=== PATIENT | female | born 2000 | race Caucasian/White ===

== ENCOUNTER 2023-07-16 01:32 | Emergency (ER) | payer SELFPAY ==
--- OUTSIDE RECORDS SUMMARY | 2023-07-16 01:34 | XMS REPORT | Continuity of Care Document ---
:2000 Author Organization [facility] t Address [address] [facility]. [address] [place] [address] Care Team Providers Name Role Phone Sylvia Luke NP Primary Care Physician Doctor Unassigned, [place] Attending Clinician Unavailable 2, [facility] Attending Clinician Unavailable Sylvia Luke NP Attending Clinician SYLVIA LUKE Attending Clinician Unavailable Payers Payer Name Policy Type Policy Number Effective Date Expiration Date S ource Problems Condition Condition Condition Status Onset Resolution Last Treating Co mments Source Name Details Category Date Date Treatment Clinician Date No known No known Disease Unive rs active active ity of problems problems [facility] Allergies, Adverse Reactions, Alerts Allergy Allergy Status Severity Reaction(s) Onset Inactive Treating Comm ents Source Name Type Date Date Clinician NO KNOWN Drug Active Univers ALLERGIE Class ity of S [facility] Social History Social Habit Start Date Stop Date Quantity Comments Source [facility] and 2022-08-08 2022-08-08 Smokeless Universit y of exposure 00:00:00 00:00:00 tobacco non-user [facility] History of Social 2022-08-08 2022-08-08 Univers ity of function 00:00:00 00:00:00 [facility] Sex Assigned At [birth year] Universit y of 00:00:00 00:00:00 [facility] Smoking Status Start Date Stop Date Source Tobacco smoking consumption [facility] Never smoked tobacco [facility] Medications Ordered Filled Start Stop Current Ordering Indication Dosage Frequency Signature Comments Components Source Medication Medication Date Date Medication? Clinician (SIG) Name Name No known 2021-08 No No known Unive rs medications 2-09 medication it y of 13:27: s [address] No known 2021-08 No No known Unive rs medications 2-09 medication it y of 13:27: s [address] No known 2021-08 No No known Unive rs medications 2-09 medication it y of 13:27: s [address] Vital Signs Vital Name Observation Time Observation Value Comments Source Systolic blood 2022-08-08 19:02:00 106 mm[Hg] Univer sity of [facility] Diastolic blood 2022-08-08 19:02:00 70 mm[Hg] Unive rsity [facility] Heart rate 2022-08-08 19:02:00 85 /min [facility] Body temperature 2022-08-08 19:02:00 37.22 Amanda [facility] Respiratory rate 2022-08-08 19:02:00 18 /min [facility] Body height 2022-08-08 19:02:00 154.9 cm [facility] Body weight 2022-08-08 19:02:00 51.891 kg [facility] BMI 2022-08-08 19:02:00 21.62 kg/m2 [facility] Oxygen saturation in 2022-08-08 19:02:00 99 /min [facility] blood by [facility] Pulse oximetry Drifting Procedures Procedure Date / Time Performed Performing Clinician [facility] e ASSIGNMENT OF BENEFITS 2022-08-08 18:50:09 Doctor Unassigned, No [facility] Encounters Start End Encounter Admission Attending Care Care Encounter Source Date/Time Date/Time Type Type Clinicians Facility Department ID 2023-03-28 2023-03-28 Patient Doctor NATHANAEL [id number] Univers 00:00:00 00:00:00 Secure Msg Unassigned, DEIDRE [id number] [facility] [id number] [place] as [phone] [place] [address] [address] 2022-08-08 2022-08-08 [employer] 2, Ad[facility] Lab [facility] [id number] Univers 13:45:00 14:00:00 Visit Prabha, Sylvia GONCALVES [id number] [facility] [id number] [phone] [place] dical [address] [address] [facility] 2022-08-08 2022-08-08 Office Prabha [facility] [id number] [facility] 13:00:00 13:46:54 Visit Sylvia GONCALVES [id number] ity of [id number] [phone] Va dical [facility] 0[address] [facility] 2022-08-08 2022-08-08 Outpatient R SYLVIA LUKE [facility] [id number] [facility] 13:00:00 13:46:54 SYLVIA LUKE ity of [facility] 2022-08-08 2022-08-08 Orders Doctor NATHANAEL [id number] Univers 00:00:00 00:00:00 Only Unassigned, DEIDRE [id number] ity of [place] [facility] [id number] [place]wn as [phone] [place] [address] [address] Results This patient has no known results.
[2023-07-16] MEDS ORDERED: DIAZEPAM 5 MG TABLET ONE (01:59)
[2023-07-16 03:00] LABS: Hematocrit 42.1 % (36.0-45.0); Lymphocytes % 25.3 % (15.3-44.8); MCV 84.8 fL (80-100); MPV 9.6 fL (7.6-11.3); Platelets 311 thou/uL (152-406); RBC Red Blood Cell Count 4.97 M/uL (3.86-4.86)
[2023-07-16 03:18] LABS: ALT/SGPT 20 U/L (13-56); AST/SGOT 14 U/L (15-37); Albumin 4.2 g/dL (3.4-5.0); Alkaline Phosphatase 65 U/L (45-117); BUN Blood Urea Nitrogen 11 mg/dL (7-18); Bicarbonate 27 mEq/L (21-32); Bilirubin Total 0.2 mg/dL (0.2-1.0); Creatine Phosphokinase 63 U/L (26-192); Glomerular Filtration Rate 127 ml/min (=/>90); Glucose Level 109 mg/dL (74-106); Potassium 4.1 mEq/L (3.5-5.1); Protein, Total 8.2 g/dL (6.4-8.2); Sodium Level 137 mEq/L (136-145)
[2023-07-16 03:24] LABS: Bilirubin Direct < 0.1 mg/dL (0-0.2); Bilirubin Indirect, Calculated ND mg/dL (0.2-0.8)
--- NOTE | 2023-07-16 03:44 | EDPHYS ---
Physician Documentation [facility] Name: Sofía Perry Age: 23 yrs Sex: Female : 2000 Arrival Date: 07/16/2023 Time: 01:32 Bed 13 Private MD: ED Physician Sal Granados HPI: 07/16 01:37 This 23 yrs old Female presents to ER via EMS with complaints of emotional sp4 upset, reports possible seizure . 03:29 23-year-old female with history of anxiety, depression and history of cutting her sp4 forearms, presents with cute onset of emotional upset and reporting possible seizure at home. Patient states she was playing videogames in her apartment and she have developed some sort of episode of freezing up and staring into space. No history of prior seizures, patient takes Wellbutrin 150 mg p.o. daily. Historical: - Allergies: 01:34 No Known Allergies; kl - Home Meds: 01:34 None [Active]; kl - PMHx: 01:34 Anxiety; depression (Anxiety); kl - Immunization history:: Adult Immunizations unknown. - Social history:: Smoking status: unknown. - Family history:: not pertinent. ROS: 03:29 Constitutional: Negative for fever, chills, and weight loss, positive for emotional sp4 upset and positive for report of possible seizure 03:29 All other systems are negative, Exam: 03:29 Constitutional: This is a well developed, well nourished patient who is awake, alert, sp4 and in no acute distress. Patient is anxious appearing and appears to be upset Head/Face: Normocephalic, atraumatic. Eyes: Pupils equal round and reactive to light, extra-ocular motions intact. Lids and lashes normal. Conjunctiva and sclera are not injected. Cornea within normal limits. Periorbital areas with no swelling, redness, or edema. ENT: Nares patent. No nasal discharge, no septal abnormalities noted. Tympanic membranes are normal and external auditory canals are clear. Oropharynx with no redness, swelling, or masses, exudates, or evidence of obstruction, uvula midline. Mucous membranes moist. Neck: Trachea midline, no thyromegaly or masses palpated, and no cervical lymphadenopathy. Supple, full range of motion without nuchal rigidity, or vertebral point tenderness. Chest/axilla: Normal chest wall appearance and motion. Nontender with no deformity. No lesions are appreciated. Cardiovascular: Regular rate and rhythm with a normal S1 and S2. No gallops, murmurs, or rubs. Normal PMI, no JVD. No pulse deficits. Respiratory: Lungs have equal breath sounds bilaterally, clear to auscultation and percussion. No rales, rhonchi or wheezes noted. No increased work of breathing, no retractions or nasal flaring. Abdomen/GI: Soft, non-tender, with normal bowel sounds. No distension or tympany. No guarding or rebound. No evidence of tenderness throughout. Back: No spinal tenderness. No costovertebral tenderness. Skin: Warm, dry with normal turgor. Normal color with no rashes, no lesions, and no evidence of cellulitis. MS/ Extremity: Pulses equal, no cyanosis. Neurovascular intact. Full, normal range of motion. Neuro: Awake and alert, GCS 15, oriented to person, place, time, and situation. Cranial nerves II-XII grossly intact. Motor strength 5/5 in all extremities. Sensory grossly intact. Psych: Awake, alert, with orientation to person, place and time. Behavior, mood, and affect are within normal limits Vital Signs: 01:33 BP 132 / 90; Pulse 102; Resp 16; Temp 98.6(O); Pulse Ox 99% on R/A; kl 02:00 BP 109 / 73; Pulse 89; Resp 16 S; Pulse Ox 98% on R/A; jw7 03:00 BP 109 / 77; Pulse 87; Resp 17; Pulse Ox 99% ; jw7 MDM: 01:46 Patient medically screened. sp4 03:29 Data reviewed: vital signs, nurses notes, old medical records, lab test result(s), CBC, sp4 hepatic panel, UPT:. 07/16 01:36 Order name: Basic Metabolic Panel; Complete Time: : sp4 07/16 01:36 Order name: CBC with Diff; Complete Time: : sp4 07/16 01:36 Order name: LFT's; Complete Time: 03: sp4 07/16 01:37 Order name: CK; Complete Time: sp4 07/16 01:37 Order name: Lactate w/ 2H reflex if indic.; Complete Time: 03:26 sp4 07/16 01:36 Order name: IV Saline Lock; Complete Time: 02:15 sp4 07/16 01:36 Order name: Labs collected and sent; Complete Time: 02:15 sp4 07/16 01:36 Order name: O2 Per Protocol; Complete Time: 02:15 sp4 07/16 01:36 Order name: O2 Sat Monitoring; Complete Time: 02:15 sp4 Administered Medications: 01:49 Drug: Diazepam PO 5 mg PO once Route: PO; jw7 04:08 Follow up: Response: No adverse reaction; Marked relief of symptoms jw7 Disposition Summary: 07/16/23 03:43 Discharge Ordered Problem: new sp4 Symptoms: have improved sp4 Condition: Stable sp4 Diagnosis - Encounter for other general examination sp4 - Acute emotional upset, acute anxiety attack sp4 Followup: sp4 - With: Gordo Duke MD - When: 10 - 14 days - Reason: Recheck today's complaints Discharge Instructions: - Discharge Summary Sheet sp4 - Managing Anxiety, Adult sp4 Forms: - Patient Portal Instructions sp4 Prescriptions: - Valium 5 mg Oral tablet - take 1 tablet ORAL route At bedtime As needed PRN insomnia or anxiety; 20 sp4 tablet; Refills: 0, Product Selection Permitted Signatures: Dispatcher [employer] Temi Smith, RN Yanira Styles RN RN jw7 Sal Granados MD MD sp4
--- NOTE | 2023-07-16 03:44 | ER ---
Nurse's Notes [facility] Name: Sofía Standard Age: 23 yrs Sex: Female : 2000 Arrival Date: 07/16/2023 Time: 01:32 Bed 13 Private MD: Diagnosis: Encounter for other general examination;Acute emotional upset, acute anxiety attack Presentation: 07/16 01:33 Chief complaint: Patient states: zoning out since playing video games all day yesterday " I think I am having seizures". Coronavirus screen:. Ebola Screen: Patient negative for fever greater than or equal to 101.5 degrees Fahrenheit, and additional compatible Ebola Virus Disease symptoms. Initial Sepsis Screen: Does the patient meet any 2 criteria? No. Patient's initial sepsis screen is negative. Does the patient have a suspected source of infection? No. Patient's initial sepsis screen is negative. Risk Assessment: Do you want to hurt yourself or someone else? Patient reports no desire to harm self or others. 01:33 Method Of Arrival: EMS: [facility] 01:33 Acuity: JCARLOS 3 kl 02:14 Onset of symptoms was July 15, 2023. jw7 Triage Assessment: 01:35 General: Appears in no apparent distress. Behavior is cooperative, quiet. Pain: Denies kl pain. Neuro: No deficits noted. Level of Consciousness is awake, alert, obeys commands, Oriented to person, place, time, situation, Speech is normal, Facial symmetry appears normal, Pupils are PERRLA. Historical: - Allergies: 01:34 No Known Allergies; kl - Home Meds: 01:34 None [Active]; kl - PMHx: 01:34 Anxiety; depression (Anxiety); kl - Immunization history:: Adult Immunizations unknown. - Social history:: Smoking status: unknown. - Family history:: not pertinent. Screenin:13 [facility] ED Fall Risk Assessment (Adult) History of falling in the last 3 months, jw7 including since admission No falls in past 3 months (0 pts) Score/Fall Risk Level 0 - 2 = Low Risk Oriented to surroundings, Maintained a safe environment. Abuse screen: Denies threats or abuse. Denies injuries from another. Nutritional screening: No deficits noted. Tuberculosis screening: No symptoms or risk factors identified. Assessment: 01:45 General: see triage assessment . jw7 02:50 Reassessment: Patient appears in no apparent distress at this time. No changes from jw7 previously documented assessment. Patient and/or family updated on plan of care and expected duration. Pain level reassessed. Patient is alert, oriented x 3, equal unlabored respirations, skin warm/dry/pink. 04:07 Reassessment: Patient appears in no apparent distress at this time. Patient and/or jw7 family updated on plan of care and expected duration. Pain level reassessed. Patient is alert, oriented x 3, equal unlabored respirations, skin warm/dry/pink. Patient states feeling better. Patient states symptoms have improved. Vital Signs: 01:33 BP 132 / 90; Pulse 102; Resp 16; Temp 98.6(O); Pulse Ox 99% on R/A; kl 02:00 BP 109 / 73; Pulse 89; Resp 16 S; Pulse Ox 98% on R/A; jw7 03:00 BP 109 / 77; Pulse 87; Resp 17; Pulse Ox 99% ; jw7 ED Course: 01:33 Patient arrived in ED. rv1 01:34 Triage completed. kl 01:36 Sal Granados MD is Attending Physician. sp4 01:38 Yanira Jensen, LOLIS is Primary Nurse. jw7 02:13 Initial lab(s) drawn, by nc, sent to lab. Inserted saline lock: 22 gauge in left [facility] antecubital area, using aseptic technique. Blood collected. 02:13 Patient has correct armband on for positive identification. Bed in low position. Call [facility] light in reach. 02:14 Arm band placed on. jw7 02:15 Lactate w/ 2H reflex if indic. Sent. jw7 02:15 CK Sent. jw7 02:15 Basic Metabolic Panel Sent. jw7 02:15 CBC with Diff Sent. jw7 02:15 LFT's Sent. jw7 03:42 Gordo Duke MD is Referral Physician. sp4 04:08 No provider procedures requiring assistance completed. IV discontinued, intact, jw7 bleeding controlled, No redness/swelling at site. Pressure dressing applied. 04:09 Provided Education on: discharge instructions and medication usage. jw7 Administered Medications: 01:49 Drug: Diazepam PO 5 mg PO once Route: PO; jw7 04:08 Follow up: Response: No adverse reaction; Marked relief of symptoms jw7 Medication: 04:09 VIS not applicable for this client. jw7 Outcome: 03:43 Discharge ordered by . bridgette 04:08 Discharged to home ambulatory, jw7 04:08 Condition: stable 04:08 Discharge instructions given to patient, Instructed on discharge instructions, follow up and referral plans. medication usage, Demonstrated understanding of instructions, follow-up care, medications, Prescriptions given X 1, 04:10 Patient left the ED. jw7 Signatures: Temi Werner RN Yanira Styles RN RN jw7 Villegas, Rebecca rv1 Sal Granados MD MD sp4
[2023-07-16 04:21] VITALS: TEMP 98.6
[2023-07-16 04:24] VITALS: BP 109/77; O2SAT 99
== END 2023-07-16 04:10 | disposition home or self-care (01) ==
LOC: ER 01:32
DX: F41.0 Panic disorder [episodic paroxysmal anxiety] (principal); F43.0 Acute stress reaction
CPT/HCPCS: 36415; 80048; 80076; 82550; 83605; 85025; 99284